=== PATIENT | female | born 1960 | race African-American/Black ===

== ENCOUNTER 2016-05-22 13:26 | Emergency (ER) | payer MEDICARE, OTHER ==
[~2016-05-22] VITALS: Wt 110.0 kg
[~2016-05-22 13:26] MED LIST: AZIT250T94 PO; CITA-104 PO; GABA300C16 PO; HYDR-3498 PO; IBUP-1542 PO; ONDA4TAB35 PO; VENL150C PO
--- NOTE | 2016-05-22 14:57 | ERA ---
ER Documentation Chief Complaint Date/Time DATE: 05/22/16 TIME: 14:56 Chief Complaint SUDDEN ONSET ABDOMINAL PAIN WHILE VISITING. NAUSEA NO VOMITING. HPI The patient is a 56-year-old female, presenting to the ER because of sudden onset of abdominal pain while she was visiting her family in the hospital. She was therefore transferred to the ER for further evaluation. She has similar symptom in the past. The abdominal pain is diffuse, intermittent, worse with constipation. She complains of painful urination for the last 2 weeks intermittently. She recently took a trip from [place] to [place] a few days ago. She denies fever, chills, neck pain, chest pain with exertion or vomiting or diaphoresis. She smokes and drinks socially Past medical history: Ovarian cyst, anxiety Past surgical history: None ROS All systems reviewed and are negative except as per history of present illness. Medications Home Meds Active Scripts Ibuprofen* (Motrin*) 600 Mg Tab, 600 MG PO Q6H Y for PAIN AND OR ELEVATED TEMP, #30 TAB Prov:JUAN PABLO LAY MD 05/22/16 Polyethylene Glycol* (Miralax*) 17 Gm Powd.pack, 17 GM PO DAILY, #7 Prov:JUAN PABLO LAY MD 05/22/16 Ibuprofen* (Motrin*) 600 Mg Tab, 600 MG PO Q6H Y for PAIN AND OR ELEVATED TEMP, #30 TAB Prov:JUAN PABLO LAY MD 05/22/16 Polyethylene Glycol* (Miralax*) 17 Gm Powd.pack, 17 GM PO DAILY, #7 Prov:JUAN PABLO LAY MD 05/22/16 Discontinued Reported Medications Gabapentin* (Gabapentin*) 300 Mg Capsule, 300 MG PO TID, CAP 02/14/15 Citalopram Hydrobromide* (Citalopram Hydrobromide*) 40 Mg Tablet, 40 MG PO DAILY , TAB 10/12/14 Venlafaxine Hcl* (Effexor XR*) 150 Mg Cap.sr.24h, 150 MG PO DAILY, CAP 10/12/14 Discontinued Scripts Azithromycin* (Zithromax*) 250 Mg Tablet, 250 MG PO .ZPACK DIRECTED, #6 TAB TAKE 500 MG (2 TABS) THE FIRST DAY THEN 250 MG (1 TAB) DAYS 2-5 Prov:BHARAT PEREIRA MD 08/15/15 Ibuprofen* (Motrin*) 600 Mg Tab, 600 MG PO Q6, #20 TAB Prov:BHARAT PEREIRA MD 08/15/15 Hydrocodone Bit-Acetaminophen* (Wing*) 5-325 Mg Tab, 1 TAB PO Q6 Y for PAIN, # 14 TAB Prov:BHARAT PEREIRA MD 08/15/15 Ondansetron Hcl* (Zofran* ODT) 4 mg -ODT Tab.disper, 4 MG PO Q6 Y for NAUSEA AND /OR VOMITING, #30 TAB Prov:ROSALIO CAMERON MD 08/02/15 Azithromycin* (Zithromax*) 250 Mg Tablet, 250 MG PO .ZPACK DIRECTED, #6 TAB TAKE 500 MG (2 TABS) THE FIRST DAY THEN 250 MG (1 TAB) DAYS 2-5 Prov:ROSALIO CAMERON MD 08/02/15 Allergies Allergies: Coded Allergies: Penicillins (Verified Allergy, Unknown, 05/22/16) PMhx/Soc History of Surgery: No Anesthesia Reaction: No Hx Neurological Disorder: No Hx Respiratory Disorders: No Hx Cardiac Disorders: No Hx Psychiatric Problems: Yes (anxiety, PTSD, depression) Hx Miscellaneous Medical Probl: Yes (fibroid, UTI) Hx Alcohol Use: No Hx Substance Use: Yes (cocaine-stopped using 1-1/2 years ago) Hx Tobacco Use: Yes Physical Exam Vitals Vital Signs Date Time Temp Pulse Resp B/P Pulse Ox O2 Delivery O2 Flow Rate FiO2 05/22/16 17:52 98.2 72 19 127/76 100 Room Air 05/22/16 13:33 98.6 110 21 126/85 98 Physical Exam Const: No acute distress. Anxious Head: Atraumatic. Eyes: Normal Conjunctiva. ENT: Normal External Ears, Nose and Mouth. Neck: Full range of motion. No meningismus. Resp: Clear to auscultation bilaterally. Cardio: Regular but tachycardic Abd: Soft, non distended, normal bowel sounds, diffuse and vague abdominal tenderness, no rigidity, rebound, CVA tenderness Skin: No petechiae or rashes. Back: No midline or flank tenderness. Ext: No cyanosis, or edema. Neur: Awake and alert. No focal deficit Psych: Normal Mood and Affect. Result Diagram: 05/22/16 1545 05/22/16 1545 Results 24 hrs Laboratory Tests Test 05/22/16 15:45 05/22/16 16:22 Activated Partial Thromboplast Time 30.6Sec Alanine Aminotransferase (ALT/SGPT) 25IU/L Albumin 3.7g/dl Albumin/Globulin Ratio 1.02 Alkaline Phosphatase 88IU/L Anion Gap 17 Aspartate Amino Transf (AST/SGOT) 20IU/L Basophils # 0.010^3/ul Basophils % 0.1% Blood Morphology Comment Blood Urea Nitrogen 11mg/dl Calcium Level 9.5mg/dl Carbon Dioxide Level 26mmol/L Chloride Level 108mmol/L Creatinine 0.69mg/dl D-Dimer 347.36ng/ml D-Dimer Comment Direct Bilirubin 0.00mg/dl Eosinophils # 0.410^3/ul Eosinophils % 2.5% Globulin 3.60g/dl Glucose Level 97mg/dl Hematocrit 45.6% Hemoglobin 14.9g/dl INR International Normalized Ratio 0.96 Indirect Bilirubin 0.0mg/dl Lipase 116U/L Lymphocytes # 3.110^3/ul Lymphocytes % 21.3% Mean Corpuscular Hemoglobin 26.2pg Mean Corpuscular Hemoglobin Concent 32.6g/dl Mean Corpuscular Volume 80.3fl Mean Platelet Volume 8.1fl Monocytes # 0.310^3/ul Monocytes % 2.1% Neutrophils # 10.910^3/ul Neutrophils % 74.0% Nucleated Red Blood Cells # 0.010^3/ul Nucleated Red Blood Cells % 0.0/100WBC Platelet Count 12561^3/UL Potassium Level 4.3mmol/L Prothrombin Time 12.8Sec Prothrombin Time Ratio 1.0 Red Blood Count 5.6910^6/ul Red Cell Distribution Width 16.9% Sodium Level 147mmol/L Total Bilirubin 0.0mg/dl Total Protein 7.3g/dl Troponin I < 0.012ng/ml White Blood Count 14.710^3/ul Bedside Urine Blood Negative Bedside Urine Glucose (UA) Negative Bedside Urine Ketones (LAB) Negative Bedside Urine Leukocyte Esterase (L Trace Bedside Urine Nitrite (LAB) Negative Bedside Urine Protein (LAB) Trace Bedside Urine pH (LAB) 5.5 Current Medications Medications (Trade) Dose Ordered Sig/Mark Route PRN Reason Start Time Stop Time Status Last Admin Dose Admin Morphine Sulfate (morphine) 2 mg ONCE ONCE IV 2/7/17 15:30 05/22/16 15:31 DC 05/22/16 15:48 Ondansetron HCl (Zofran Inj) 4 mg ONCE STAT IV 05/22/16 15:22 05/22/16 15:25 DC 05/22/16 15:48 Procedures/MDM [place] [address] Radiology Main Line: [phone] DIAGNOSTIC IMAGING REPORT Patient: LINDA JORDAN : 1960 Age: 56 Sex: F MR #: [id number] DOS: 05/22/16 1522 Ordering MD: JUAN PABLO LAY MD Location: E/R Room/Bed: PROCEDURE: Chest Radiograph. CLINICAL INDICATION: Abdominal pain TECHNIQUE: Single frontal chest radiograph. COMPARISON: Chest radiograph 08/01/2014 FINDINGS: The cardiomediastinal silhouette is within normal limits. No infiltrate or effusion is seen. The bones are intact. IMPRESSION: 1. Unremarkable chest radiograph. RPTAT: KK .Reji Dc MD, MD Date Time Electronically viewed and signed by .Reji Dc MD, MD on 2016 15:46 .B/ CC: JUAN PABLO LAY MD [place] [address] Radiology Main Line: [phone] DIAGNOSTIC IMAGING REPORT Patient: LINDA JORDAN : 1960 Age: 56 Sex: F MR #: [id number] DOS: 05/22/16 1522 Ordering MD: JUAN PABLO LAY MD Location: E/R Room/Bed: PROCEDURE: CT Abdomen and Pelvis without contrast CLINICAL INDICATION: Abdominal pain TECHNIQUE: Transaxial images were obtained through the abdomen and pelvis on a multi-slice scanner without the intravenous contrast administration. No oral contrast had previously been given. Sagittal and coronal re-formations were subsequently reconstructed. One or more of the following dose reduction techniques were used: - Automated exposure control. - Adjustment of the mA and/or kV according to patient size. - Use of iterative reconstruction technique. Radiation dose: CTDIvol = 23.55 mGy; DLP = 1329.07 mGy-cm. COMPARISON: 02/14/2015 FINDINGS: Lung bases: The visualized lung bases appear unremarkable. Liver: Normal in size and in attenuation. There is no focal lesion. Gallbladder: The wall is not thickened. No radiopaque stones are identified. Bile ducts: The intra and extrahepatic bile ducts are normal in caliber. Pancreas: Appears normal with no mass or inflammation evident. Spleen: Normal in size with no focal lesion. Adrenals: Normal with no mass identified. Kidneys, ureters and bladder: A 2.6 cm hypodensity is again seen within the posterior mid pole right kidney which likely represents a cyst. The kidneys are otherwise unremarkable with no intra renal calcification or hydronephrosis evident. The ureters are normal in caliber and no ureteroliths are identified. The bladder is poorly distended. Reproductive organs: The uterus is prominent. A 5.0 x 3.4 by 3.1 cm cyst is seen in the left adnexal region extending superior to the uterus. This appears more prominent than seen previously. Stomach and bowel: There are scattered diverticuli within the colon without evidence of bowel obstruction or inflammation. There is substantial stool within the colon. The stomach appears unremarkable. Appendix: A normal vermiform appendix is evident. Peritoneum: No free intraperitoneal fluid or air is identified. A moderate sized fat-containing umbilical hernia is noted. Aorta: There is atherosclerotic vascular calcification but no abdominal aortic aneurysm is evident. IVC: Unremarkable. Lymph nodes: No pathologically enlarged nodes are identified. Osseous structures: The osseous elements appear intact. IMPRESSION: 1. Since the previous CT of 02/14/2015, a 2.6 cm cyst is again seen within the posterior mid pole right kidney but there is no evidence of urinary outflow obstruction or ureterolithiasis. The bladder is poorly distended. 2. Diverticulosis of the colon with substantial stool within the colon without evidence of bowel obstruction or inflammation with a normal vermiform appendix evident. 3. 5.0 x 3.4 x 3.1 cm left adnexal cyst. This has slightly increased in size from the previous study. The uterus remains enlarged. Correlation with pelvic sonography may be useful. 4. A moderate-sized fat-containing umbilical hernia is again evident. 5. Atherosclerotic vascular calcification is again noted. Physician Nithya Date Time Electronically viewed and signed by Cailin Reyez Physician on 05/22/2016 16:45 RH/ CC: JUAN PABLO LAY MD MEDICAL MAKING DECISION: The patient is an 56-year-old female, presenting with acute abdominal pain of unclear etiology, most likely due to constipation. She was treated with morphine 2 minute IV for pain, Zofran 4 mg IV for nausea with good response. The differential diagnoses considered include but are not limited to cholelithiasis, cholecystitis, cystitis, pancreatitis, hepatitis, gastritis, peptic ulcer disease, gastric ulcer, appendicitis, diverticulitis, cholangitis, choledocholithiasis, partial small bowel obstruction. Departure Diagnosis: Primary Impression: Abdominal pain Additional Impressions: Constipation Renal cyst, right Umbilical hernia Left ovarian cyst Condition: Good Comments She was discharged with MiraLAX and Motrin I discussed the findings with the patient. I advised the patient to follow-up with the primary physician in about 1-2 days, sooner if needed and return if any concern. The patient's blood pressure was elevated (>120/80) but appears stable without evidence of hypertension emergency or urgency. The patient was counseled about the risks of hypertension and urged to pursue outpatient monitoring and therapy within a week with their primary care physician. JUAN PABLO LAY MD May 22, 2016 14:57
[2016-05-22] MEDS ORDERED: ONDANSETRON 4 MG INJ IV STA (15:22)
[2016-05-22] MEDS ORDERED: morphine 2 MG INJ IV ONE (15:30)
--- NOTE | 2016-05-22 15:46 | RADRPT ---
PROCEDURE: Chest Radiograph. CLINICAL INDICATION: Abdominal pain TECHNIQUE: Single frontal chest radiograph. COMPARISON: Chest radiograph 08/01/2014 FINDINGS: The cardiomediastinal silhouette is within normal limits. No infiltrate or effusion is seen. Th e bones are intact. IMPRESSION: 1. Unremarkable chest radiograph. RPTAT: KK .Reji Dc MD, MD Date Time Electronically viewed and signed by .Reji Dc MD, on 05/22/2016 15:46 .B/
[2016-05-22 16:01] LABS: BASOPHILS % 0.1 % (0.0-2.0); EOSINOPHILS # 0.4 10^3/ul (0.0-0.5); EOSINOPHILS % 2.5 % (0.0-7.0); HEMATOCRIT 45.6 % (37.0-47.0); HEMOGLOBIN 14.9 g/dl (12.0-16.0); LYMPHOCYTES # 3.1 10^3/ul (0.8-2.9); LYMPHOCYTES % 21.3 % (15.0-51.0); MEAN CORPUSCULAR HEMOGLOBIN 26.2 pg (29.0-33.0); MEAN CORPUSCULAR HGB CONC 32.6 g/dl (32.0-37.0); MEAN CORPUSCULAR VOLUME 80.3 fl (82.0-101.0); MEAN PLATELET VOLUME 8.1 fl (7.4-10.4); MONOCYTE # 0.3 10^3/ul (0.3-0.9); MONOCYTES % 2.1 % (0.0-11.0); NEUTROPHIL # 10.9 10^3/ul (1.6-7.5); PLATELET COUNT 362 10^3/UL (140-440); RED BLOOD COUNT 5.69 10^6/ul (4.20-5.40); RED CELL DISTRIBUTION WIDTH 16.9 % (11.5-14.5); UNCORRECTED WBC 14.7 10^3/ul (4.8-10.8); WHITE BLOOD COUNT 14.7 10^3/ul (4.8-10.8)
[2016-05-22 16:03] LABS: CONDITION 1; LH ANALYZER COMMENTS 1
[2016-05-22 16:14] LABS: INR 0.96; PROTIME 12.8 Sec (12.2-14.2)
[2016-05-22 16:15] LABS: PARTIAL THROMBOPLASTIN TIME 30.6 Sec (25.0-35.0)
[2016-05-22 16:16] LABS: ALBUMIN 3.7 g/dl (3.3-4.9); CHLORIDE 108 mmol/L (97-110); SODIUM 147 mmol/L (135-144)
[2016-05-22 16:17] LABS: D-DIMER 347.36 ng/ml (<460); POTASSIUM 4.3 mmol/L (3.5-5.1)
[2016-05-22 16:19] LABS: ALANINE AMINOTRANSFERASE 25 IU/L (13-69); ALBUMIN/GLOBULIN RATIO 1.02; ALKALINE PHOSPHATASE 88 IU/L (42-121); ANION GAP 17 (8-16); ASPARTATE AMINO TRANSFERASE 20 IU/L (15-46); BLOOD UREA NITROGEN 11 mg/dl (7-20); CALCIUM 9.5 mg/dl (8.4-10.2); CARBON DIOXIDE 26 mmol/L (21-31); CREATININE 0.69 mg/dl (0.44-1.00); GLUCOSE 97 mg/dl (70-220); TOTAL PROTEIN 7.3 g/dl (6.1-8.1)
[2016-05-22 16:21] LABS: URINE BLOOD (Dip) POC Negative (NEGATIVE)
[2016-05-22 16:42] LABS: TROPONIN-I < 0.012 ng/ml (0.00-0.12)
--- NOTE | 2016-05-22 16:45 | RADRPT ---
PROCEDURE: CT Abdomen and Pelvis without contrast CLINICAL INDICATION: Abdominal pain TECHNIQUE: Transaxial images were obtained through the abdomen and pelvis on a multi-slice scanner without the intravenous contrast administration. No oral contrast had previously been given. Sagit oniel and coronal re-formations were subsequently reconstructed. One or more of the following dose reduction techniques were used: - Automated exposure control. - Adjustment of the mA and/or kV according to patient size. - Use of iterative reconstruction technique. Radiation dose: CTDIvol = 23.55 mGy; DLP = 1329.07 mGy-cm. COMPARISON: 02/14/2015 FINDINGS: Lung bases: The visualized lung bases appear unremarkable. Liver: Normal in size and in attenuation. There is no focal lesion. Gallbladder: The wall is not thickened. No radiopaque stones are identified. Bile ducts: The intra and extrahepatic bile ducts are normal in caliber. Pancreas: Appears normal with no mass or inflammation evident. Spleen: Normal in size with no focal lesion. Adrenals: Normal with no mass identified. Kidneys, ureters and bladder: A 2.6 cm hypodensity is again seen within the posterior mid pole right kidney which likely represents a cyst. The kidneys are otherwise unremarkable with no intra renal calcification or hydronephrosis evident. The ureters are normal in caliber and no ureteroliths are i dentified. The bladder is poorly distended. Reproductive organs: The uterus is prominent. A 5.0 x 3.4 by 3.1 cm cyst is seen in the left adnexa l region extending superior to the uterus. This appears more prominent than seen previously. Stomach and bowel: There are scattered diverticuli within the colon without evidence of bowel obstru ction or inflammation. There is substantial stool within the colon. The stomach appears unremarkab le. Appendix: A normal vermiform appendix is evident. Peritoneum: No free intraperitoneal fluid or air is identified. A moderate sized fat-containing umbi lical hernia is noted. Aorta: There is atherosclerotic vascular calcification but no abdominal aortic aneurysm is evident. IVC: Unremarkable. Lymph nodes: No pathologically enlarged nodes are identified. Osseous structures: The osseous elements appear intact. IMPRESSION: 1. Since the previous CT of 02/14/2015, a 2.6 cm cyst is again seen within the posterior mid pole r ight kidney but there is no evidence of urinary outflow obstruction or ureterolithiasis. The bladde r is poorly distended. 2. Diverticulosis of the colon with substantial stool within the colon without evidence of bowel ob struction or inflammation with a normal vermiform appendix evident. 3. 5.0 x 3.4 x 3.1 cm left adnexal cyst. This has slightly increased in size from the previous shruti dy. The uterus remains enlarged. Correlation with pelvic sonography may be useful. 4. A moderate-sized fat-containing umbilical hernia is again evident. 5. Atherosclerotic vascular calcification is again noted. Physician Nithya Date Time Electronically viewed and signed by Cailin Reyez Physician on 05/22/2016 16:45 RH/
[2016-05-22] MEDS ORDERED: IBUP-1542 PO ×2 (17:09→17:35)
[2016-05-22] MEDS ORDERED: POLY17PO6 PO ×2 (17:09→17:35)
[2016-05-22 17:52] VITALS: BP 127/76; PULSE 72; RESP 19; TEMP 98.2
--- NOTE | 2016-05-22 20:06 | RADRPT ---
PROCEDURE: US Lower extremity Venous. CLINICAL INDICATION: Bilateral lower extremity swelling , chest pain TECHNIQUE: Multiple sonographic images of the bilateral lower extremity deep venous system was obt ained utilizing grayscale, color-flow, compressive sonography and doppler imaging with augmentation. The images were reviewed on a PACS workstation. COMPARISON: None. FINDINGS: There is normal compressibility and flow within the bilateral common femoral, superficial femoral , posterior tibial and popliteal veins. RPTAT: AA IMPRESSION: No sonographic evidence for deep venous thrombosis. .Tony Sagastume MD, MD Date Time Electronically viewed and signed by .Tony Sagastume MD, MD on 05/22/2016 16:24 .S/
== END 2016-05-22 17:53 | disposition home or self-care (01) ==
LOC: E/R 13:26
DX: R10.84 Generalized abdominal pain (principal); R40.2252 Coma scale, best verbal response, oriented, at arrival to emergency department; K59.00 Constipation, unspecified; N28.1 Cyst of kidney, acquired; K42.9 Umbilical hernia without obstruction or gangrene; N83.202 Unspecified ovarian cyst, left side; R11.0 Nausea; R40.2142 Coma scale, eyes open, spontaneous, at arrival to emergency department; R40.2362 Coma scale, best motor response, obeys commands, at arrival to emergency department; Z87.891 Personal history of nicotine dependence
CPT/HCPCS: 36415; 71010; 74176; 80053; 81003; 83690; 84484; 85025; 85378; 85610; 85730; 93970; 96374; 96375; 99285; J2270; J2405

== ENCOUNTER 2017-12-30 23:23 | Emergency (ER) | END 2017-12-31 06:14 | disposition home or self-care (01) ==